=== PATIENT | male | born 1970 | race Caucasian/White ===

== ENCOUNTER 2020-08-23 15:36 | Outpatient (REF) | payer BC, SELFPAY ==
[2020-08-23 16:11] LABS: MANUAL DIFF FLAG NO
[2020-08-23 16:21] LABS: Basophils Percent Auto 0.7 % (0-2); Eosinophils Percent Auto 0.4 % (0-4); Hematocrit 41.2 % (42-52); Hemoglobin 14.5 g/dl (14.0-18.0); Imm Gran Abs Auto 0.02 X10*3/uL (0.00-0.03); Imm Gran Pct Auto 0.4 % (0.0-0.4); Lymphocytes Absolute Auto 1.7 X10*3/uL (1.2-4.9); Lymphocytes Percent Auto 35.9 % (20-40); Mean Corpuscular HGB Conc 35.2 g/dl (31.0-36.0); Mean Corpuscular Hemoglobin 33.6 pg (27.0-33.0); Mean Corpuscular Volume 95.6 fL (80-98); Mean Platelet Volume 10.7 fL (9.4-12.4); Monocytes Absolute Auto 0.4 X10*3/uL (0.1-1.2); Monocytes Percent Auto 9.1 % (2-11); Neutrophils Absolute Auto 2.5 X10*3/uL (2.0-8.3); Neutrophils Percent Auto 53.5 % (45-73); Platelet Count 257 X10*3/uL (160-400); Red Blood Count 4.31 X10*6/uL (4.60-5.80); Red Cell Distribution Width 11.5 % (11.0-16.0); White Blood Count 4.6 X10*3/uL (4.8-10.8)
[2020-08-23 16:34] LABS: Glucose Urine UA NEG (NEG); Leukocyte Esterase Urine NEG (NEG); Nitrite Urine NEG (NEG); PH 7.5 (5.0-8.0); Urine Blood NEG (NEG); Urine Ketones NEG (NEG); Urine Protein NEG (NEG-TRACE)
[2020-08-23 16:38] LABS: Appearance Urine CLEAR; Color Urine YELLOW
[2020-08-23 16:48] LABS: Alanine Aminotransferase 23 U/L (0-40); Albumin Level 4.7 g/dL (3.5-5.0); Alkaline Phosphatase 75 U/L (39-117); Anion Gap 12 (12-20); Aspartate Amino Transferase 21 U/L (5-37); Bilirubin Total 0.7 mg/dL (0.0-1.0); Blood Urea Nitrogen 16 mg/dL (9-16); C Reactive Protein 0.03 mg/dL (< or = 0.50); Calcium 9.6 mg/dL (8.4-10.2); Carbon Dioxide 31 mmol/L (22-29); Chloride 102 mmol/L (96-108); Cholesterol 152 mg/dL; Estimated Glomerular Filt Rate > 60; Glucose Random 93 mg/dL (60-115); HDL Cholesterol 47 mg/dL; LDL Cholesterol Calculated 85 mg/dl; Potassium 4.1 mmol/L (3.3-5.1); Sodium 141 mmol/L (135-145); Total Protein 7.2 g/dL (6.5-8.0); Triglycerides 101 mg/dL
[2020-08-23 17:09] LABS: Prostate Specific Antigen 0.74 ng/mL (<0.05-4.0)
== END 2020-08-23 15:37 | disposition home or self-care (01) ==
LOC: HO.LAB 15:36
PROVIDERS: PCP Internal Medicine; Visit Provider Internal Medicine
DX: Z00.00 Encounter for general adult medical examination without abnormal findings (principal)
CPT/HCPCS: 36415; 80053; 80061; 81003; 84153; 85025; 86140

== ENCOUNTER 2020-10-12 14:40 | Outpatient (REF) | payer BC, SELFPAY ==
--- NOTE | ~2020-10-12 | XR_ITS ---
EXAMINATION: XR SACRUM AND COCCYX CLINICAL INFORMATION: Pain COMPARISON: None TECHNIQUE: 2 views of the sacrum and 2 views of the coccyx were obtained. FINDINGS: There are no fractures. No bone, joint or soft tissue abnormality is demonstrated. XR/XR sacrum coccyx min 2V IMPRESSION: Unremarkable examination.
== END 2020-10-12 14:41 | disposition home or self-care (01) ==
LOC: HO.XRAY 14:40
PROVIDERS: PCP Internal Medicine; Visit Provider Internal Medicine
DX: M53.3 Sacrococcygeal disorders, not elsewhere classified (principal)
CPT/HCPCS: 72220

== ENCOUNTER 2021-04-11 09:36 | Outpatient (REF) | payer BC, SELFPAY ==
--- NOTE | ~2021-04-11 | CT_ITS ---
EXAMINATION: CT PELVIS WITHOUT CONTRAST CLINICAL INFORMATION: Left-sided sacroiliac joint and coccyx pain. No history of trauma. COMPARISON: Previous x-ray of the sacrum and coccyx September 2020 TECHNIQUE: Helical scanning was performed with submillimeter collimation through the pelvis. Sagittal and coronal multiplanar 2-D reconstructions were obtained. This CT examination was performed using dose optimization techniques as appropriate, variously including the following: *Automated exposure control *Adjustment of mA and/or kV according to patient size (this includes techniques or standardized protocols for targeted exams where dose is matched to indication/reason for exam; i.e. extremities or head) *Use of iterative reconstruction technique DLP: 294 mGy-cm FINDINGS: PELVIS: There is no pelvic mass. There is stool throughout the colon questionable for constipation. Bladder prostate gland are normal. No ascites or adenopathy is seen. No hernia is seen. OSSEOUS STRUCTURES: The sacrum and coccyx are normal-appearing. No fracture or bone lesion is seen. The sacroiliac joints are normal. There are small osteophytes at the hip joints. The hip joints are otherwise normal. There is degenerative disc disease at L5-S1. CT/CT pelvis wo con IMPRESSION: Normal-appearing sacrum, coccyx and sacroiliac joints. Degenerative disc disease at L5-S1.
== END 2021-04-11 09:37 | disposition home or self-care (01) ==
LOC: HO.CT 09:36
PROVIDERS: PCP Internal Medicine; Visit Provider Internal Medicine
DX: M53.3 Sacrococcygeal disorders, not elsewhere classified (principal)
CPT/HCPCS: 72192

== ENCOUNTER 2022-11-13 09:22 | Day surgery (SDC) | payer BC, SELFPAY ==
[2022-11-13 09:35] VITALS: BP 100/63; PULSE 60; RESP 18; TEMP 36.2; O2SAT 97; BMI 25.8
[2022-11-13] MEDS: Lactated Ringers 1,000 ML 50 ML IV (10:12)
--- NOTE | 2022-11-13 10:22 | HO.ANESPROP2 ---
[facility] Past Medical History Medical History Basal cell carcinoma Functional capacity: independent ambulation Surgical History Surgical History History of surgery on arm Hx of appendectomy History of Problems with Anesthesia: No Social History Social History Patient Tobacco Use Status: Never used Tobacco Use of substances other than those prescribed or required for medical reasons: No Are you DNR?: No Advance Directives: No Advance Directives Information Provided: Yes Meds Allergies Allergy/AdvReac Type Severity Reaction Status Date / Time No Known Allergies Allergy Unverified 11/11/22 18:45 Active Medications: Current Medications Lactated Ringer's (Lr) 1,000 mls @ 50 mls/hr IV .Q20H ADY Stop: 11/14/22 06:14 Last Admin: 11/13/22 10:12 Dose: 50 mls/hr Sodium Biphosphate/Sodium Phosphate (Sodium Phosphate,Mccurtain-Dibasic 133 Ml Enema) 133 ml [place] ONCE PRN PRN Reason: Poor Colonoscopy Prep Results Exam Exam Date and Time: November 13, 2022 1022 Height,Weight and Vital Signs: Height 5 ft 9 in Weight 79.379 kg Last Vital Signs Temp 97.2 F 11/13/22 09:35 Pulse 60 11/13/22 09:35 Resp 18 11/13/22 09:35 BP 100/63 11/13/22 09:35 Pulse Ox 97 11/13/22 09:35 O2 Del Method Room Air 11/13/22 09:35 Airway Mallampati Class: II TM Dist: >3cm Neck ROM: Full Heart: RRR Lungs: CTA Assessment and Plan Final Anesthetic Review History of Problems with Anesthesia: No ASA Class: II Final Preanesthetic Review: Meds/Allgs Chart Reviewed, Consent Obtained/Reviewed and Anes Risks/Benef Reviewed Patient Risk: Low Procedure Risk: Low Anesthetic Plan Anesthetic Plan: MAC: Disposition: Standard PACU
[2022-11-13 12:01] VITALS: BP 112/62; PULSE 51; RESP 16; TEMP 36.7; O2SAT 97
--- NOTE | 2022-11-13 12:04 | PM.OP ---
Brief Operative Note Date of Service: 11/13/22 Pre-op diagnosis: Screening Post-op diagnosis: other (Mild sigmoid diverticulosis) Procedure: Colonoscopy to the cecum and TI Surgeon: Phani Galvin Anesthesia: MAC Was an [employer] Maker Hand used for this Procedure?: No Estimated blood loss (mL): 0 Pathology: none sent Condition: stable Disposition: PACU
[2022-11-13 12:16] VITALS: BP 114/61; PULSE 54; RESP 16; TEMP 36.7; O2SAT 97
--- NOTE | 2022-11-13 12:47 | OP_ITS ---
DATE OF SERVICE: 11/13/2022 SURGEON: Phani Galvin MD INDICATIONS: The patient presents for evaluation of colorectal cancer screening. Full consent has been obtained from him for this, including risks of bleeding and perforation. PREOPERATIVE DIAGNOSIS: Colorectal cancer screening. POSTOPERATIVE DIAGNOSIS: PROCEDURE PERFORMED: Colonoscopy to cecum and terminal ileum. ESTIMATED BLOOD LOSS: COMPLICATIONS: ANESTHESIA: Monitored anesthesia care. ASSISTANTS: SPECIMENS: POSTOPERATIVE DIAGNOSES: Colorectal cancer screening, occasional sigmoid diverticulosis, small internal hemorrhoids. DESCRIPTION OF PROCEDURE: The patient was placed in the left lateral decubitus position. The digital rectal exam revealed no abnormalities. The Olympus video pediatric colonoscope was entered into the rectum and advanced easily to the cecum. Once in the cecum I did identify normal-appearing cecal pouch with appendiceal orifice and a normal-appearing ileocecal valve. The terminal ileum was cannulated and appeared normal. The scope was withdrawn back in the colon. The entire cecum and ileocecal valve appeared normal. The scope was slowly withdrawn assessing all mucosal surfaces carefully. Preparation was excellent. I did not visualize any sign of polyps, colitis, nor angiodysplasia. There were occasional diverticula noted in the sigmoid colon. In the rectum, scope was retroflexed visualizing internal hemorrhoids, but no other pathology. The rectal mucosa appeared normal. The scope was straightened and withdrawn from the patient. He tolerated the procedure well and was returned to the recovery area in stable condition. IMPRESSION: 1. Occasional sigmoid diverticulosis. 2. Internal hemorrhoids. PLAN: Given today's negative exam, I would recommend a repeat colonoscopy in 10 years for screening. He will otherwise see me on a p.r.n. basis. Phani Galvin MD RMW/MODL / [id number] MTDD
--- NOTE | 2022-11-13 13:26 | HO.POSTANES ---
Post Anesthesia Evaluation Post Anesthesia Evaluation Date of Service: 11/13/22 Vital Signs: Vital Signs Temp Pulse Resp BP Pulse Ox O2 Del Method 11/13/22 12:16 98.1 F 54 16 114/61 97 Room Air 11/13/22 12:01 98.1 F 51 16 112/62 97 Room Air 11/13/22 09:35 97.2 F 60 18 100/63 97 Room Air Anesthesia: Monitored Mental Status: Awake Pain Control: Satisfactory Nausea/Vomiting: None Hydration: Adequate Anesthesia-Related Issues: No Anes. Related Issues
== END 2022-11-13 13:29 | disposition home or self-care (01) ==
PROVIDERS: PCP Internal Medicine; Visit Provider Internal Medicine
PROC: 0DJD8ZZ Inspection of Lower Intestinal Tract, Via Natural or Artificial Opening Endoscopic (ICD-10-PCS; CPT 45378; principal; 2022-11-13 10:30)
DX: Z12.11 Encounter for screening for malignant neoplasm of colon (principal); K57.30 Diverticulosis of large intestine without perforation or abscess without bleeding; K64.8 Other hemorrhoids; Z85.828 Personal history of other malignant neoplasm of skin
CPT/HCPCS: 45378

== ENCOUNTER 2023-01-23 09:02 | Outpatient (REF) | payer BC, SELFPAY ==
[2023-01-23 09:23] LABS: MANUAL DIFF FLAG NO
[2023-01-23 10:20] LABS: Basophils Percent Auto 1.2 % (0-2); Eosinophils Percent Auto 0.9 % (0-4); Hematocrit 42.3 % (42.0-52.0); Hemoglobin 14.5 g/dl (14.0-18.0); Imm Gran Abs Auto 0.01 X10*3/uL (0.00-0.03); Imm Gran Pct Auto 0.3 % (0.0-0.4); Lymphocytes Absolute Auto 1.5 X10*3/uL (1.2-4.9); Lymphocytes Percent Auto 43.4 % (20-40); Mean Corpuscular HGB Conc 34.3 g/dl (31.0-36.0); Mean Corpuscular Volume 96.4 fL (80.0-98.0); Mean Platelet Volume 10.5 fL (9.4-12.4); Monocytes Absolute Auto 0.3 X10*3/uL (0.1-1.2); Monocytes Percent Auto 8.7 % (2-11); Neutrophils Absolute Auto 1.6 x10*3/uL (2.0-8.3); Neutrophils Percent Auto 45.5 % (45-73); Platelet Count 231 X10*3/uL (160-400); Red Blood Count 4.39 X10*6/uL (4.60-5.80); Red Cell Distribution Width 11.7 % (11.0-16.0); White Blood Count 3.4 X10*3/uL (4.8-10.8)
[2023-01-23 10:53] LABS: Alanine Aminotransferase 17 U/L (0-40); Albumin Level 4.1 g/dL (3.5-5.0); Alkaline Phosphatase 76 U/L (39-117); Anion Gap 10 (12-20); Aspartate Amino Transferase 18 U/L (5-37); Bilirubin Total 0.7 mg/dL (0.0-1.0); Blood Urea Nitrogen 13 mg/dL (9-16); Calcium 9.5 mg/dL (8.4-10.2); Carbon Dioxide 29 mmol/L (22-29); Chloride 107 mmol/L (96-108); Cholesterol 114 mg/dL; Estimated Glomerular Filt Rate > 60; Glucose Fasting 92 mg/dL (60-99); HDL Cholesterol 43 mg/dL; LDL Cholesterol Calculated 63 mg/dl; Potassium 4.1 mmol/L (3.3-5.1); Sodium 142 mmol/L (135-145); Total Protein 6.7 g/dL (6.5-8.0); Triglycerides 44 mg/dL
[2023-01-23 11:09] LABS: Prostate Specific Antigen Scr 0.97 ng/mL (<0.05-4.0); Thyroid Stimulating Hormone 0.93 uIU/mL (0.32-4.0); Vitamin B12 1915 pg/mL (200-900)
[2023-01-29 15:24] LABS: Testosterone, Free 55.7 pg/mL (35.0-155.0); Testosterone, Total 525 ng/dL (250-1100)
== END 2023-01-23 09:03 | disposition home or self-care (01) ==
LOC: HO.LAB 09:02
PROVIDERS: PCP Internal Medicine; Visit Provider Internal Medicine
DX: Z12.5 Encounter for screening for malignant neoplasm of prostate (principal); R53.83 Other fatigue; H93.19 Tinnitus, unspecified ear; Z83.3 Family history of diabetes mellitus
CPT/HCPCS: 36415; 80053; 80061; 82607; 84153; 84402; 84403; 84443; 85025

== ENCOUNTER 2025-02-15 10:19 | Outpatient (AMB) | payer BC, SELFPAY ==
--- NOTE | 2025-02-15 08:56 | MHC.PC.OV ---
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 He has been having fatigue on and off for several months. He is not on medication. He has NKA. He would like to get labs including Testosterone which he states was low in the past. He needs a referral to go back to [facility] for follow up of his left arm pain. Patient had a colonoscopy in 2022. Next in 10 years [facility] Medical History Basal cell carcinoma Surgical History History of colonoscopy (~11/13/22) History of surgery on arm Hx of appendectomy Family History (Updated 02/15/25 @ 10:32 by Alexa Ramos MA) Unknown No problems noted. Unknown No problems noted. Social History Housing: House Patient Tobacco Use Status: Never used Tobacco e-Cigarette/Vaping Use: Never Used service: No Current occupational status: employed Cognitive needs: No Hearing needs: No Vision needs: Yes (reading) Questionnaire PHQ-9 Over the last 2 weeks, how often have you been bothered by any of the following problems? 1. Little interest or pleasure in doing things: not at all 2. Feeling down, depressed, or hopeless: not at all 3. Trouble falling or staying asleep, or sleeping too much: not at all 4. Feeling tired or having little energy: not at all 5. Poor appetite or overeating: not at all 6. Feeling bad about yourself - or that you are a failure or have let yourself or your family down: not at all 7. Trouble concentrating on things, such as reading the newspaper or watching television: not at all 8. Moving or speaking so slowly that other people could have noticed. Or the opposite - being so fidgety or restless that you have been moving around a lot more than usual: not at all 9. Thoughts that you would be better off or of hurting yourself in some way: not at all Total score: 0 Source: Developed by Drs. Phani Steele, Peyton Whyte, Cooper Chadwick and colleagues, with an educational nicole from [employer]. Thrive Questionnaire Date Thrive assessed: 02/15/25 I am a: Patient Within the past 12 months, did the food you bought not last and you didn't have the money to get more?: Never true Within the past 12 months, did you worry whether your food would run out before you got money to buy more?: Never true Do you have trouble paying for medicines?: No Do you have trouble getting transportation to medical appointments?: No Do you have trouble paying your heating and electricity bill?: No Do you have trouble taking care of your child, family member or friend?: No Do you have trouble with day-to-day activities such as bathing, preparing meals, shopping, managing finances, etc.?: No Are you currently unemployed and looking for a job?: No Are you interested in more education?: No THRIVE Score: 0 AUDIT C Alcohol Use Questionnaire (AUDIT-C) 1. How often do you have a drink containing alcohol?: Never 3. How often do you have six or more drinks on one occasion?: Never Total Score: 0 YAIR-7 AMB Questionnaire YAIR-7 Date YAIR - 7 assessed: 02/15/25 Feeling nervous, anxious, or on edge: 0 = Not at all Not being able to stop or control worryin = Not at all Worrying too much about different things: 0 = Not at all Trouble relaxin = Not at all Being so restless that it is hard to sit still: 0 = Not at all Becoming easily annoyed or irritable: 0 = Not at all Feeling afraid as if something awful might happen: 0 = Not at all Total YAIR-7 score (0-4 normal; 5-9 mild; 10-14 moderate; 15-21 severe): 0 Source: Developed by Drs. Phani Steele, Peyton Whyte, Cooper Chadwick and colleagues, with an educational nicole from [employer]. Review of Systems Const Details: CONSTITUTIONAL No Chills No Fever No Weight loss Fatigue No generalized weakness SKIN No itching No skin lesions Scaring on nose EYES No change in visual acuity No eye pain No red eye HEAD AND NECK No dizziness No headache No neck pain EAR/NOSE/MOUTH/THROAT No earache No sinus pain No congestion No hoarseness No sore throat RESPIRATORY No cough No shortness of breath No wheezing CARDIOVASCULAR No chest pain No dyspnea No palpitations No peripheral edema No Syncope GASTROINTESTINAL No abdominal pain No constipation No diarrhea No heartburn No loss of appetite No nausea No vomiting GENITOURINARY No dysuria No hematuria No urinary frequency No urinary urgency ENDOCRINE No cold intolerance No excessive hunger No excessive thirst No change in hair texture MUSCULOSKELETAL No back pain No joint pain No swelling Left arm pain IMMUNOLOGICAL/ALLERGIC No congestion No itchy eyes No itchy nose No rhinitis No watery eyes HEMATOLOGIC No bleeding tendencies No bruising No fatigue LYMPHATIC No swollen lymph nodes NEUROLOGICAL No memory loss No paresthesias No focal weakness PSYCHIATRIC No anxiety No depression No sleeping problems No substance abuse No suicidal ideation Physical exam (Primary Care) Vital Signs: Last Vital Signs Temp 97.2 F 02/15/25 10:26 Pulse 62 02/15/25 10:26 BP 120/74 02/15/25 10:26 Pulse Ox 96 02/15/25 10:26 Oxygen Delivery Method Room Air 02/15/25 10:26 BMI result Body Mass Index 26.7 GENERAL Well developed, Well nourished, in no apparent distress HEENT Head-Normocephalic Eyes- PERRLA, EOMI, Conjuctiva clear, lids WNL Ears- Canals clear, TMs WNL Mouth/Throat-No lesions, no erythema, no exudate Neck- Supple, No lymphadenopathy, thyroid WNL RESPIRATORY Normal I:E, Clear to auscultation CARDIOVASCULAR Regular, rate and rhythm, No murmurs or rubs GASTROINTESTINAL Soft, nontender, normal bowel sounds, no masses MUSCULOSKELETAL left arm- Full ROM, mild tenderness, muscle strength 3/5 NEUROLOGICAL Gait normal PSYCHIATRIC Oriented to person, place and time Mood and affect WNL Appearance WNL Speech WNL Thought processes WNL Tobacco/Smoking Status: Tobacco use Status Tobacco use date assessed 02/15/25 02/15/25 08:57 Patient Tobacco Use Status Never used Tobacco 02/15/25 08:57 e-Cigarette/Vaping Use Never Used 02/15/25 08:57 PHQ-9: PHQ-9 Score PHQ-9: Total score 0 02/15/25 10:26 Thrive Assessment: Date of Thrive Assessment Date Thrive assessed 02/15/25 02/15/25 08:57 Coding Level of Care Code New Pt New Pt Prev Care 40-64y(75775) Patient Type New Diagnoses Health care maintenance Z00.00 Fatigue R53.83 Left arm pain M79.602 Assessment & Plan Assessment & Plan (1) Health care maintenance: Code(s): Z00.00 - Encounter for general adult medical examination without abnormal findings Plan: Will get labs. Patient to follow up in 6 month-1 year or sooner if needed (2) Fatigue: Code(s): R53.83 - Other fatigue Category: Medical Plan: Will get labs. Will follow up in 6 months- 1 year depending on lab results. (3) Left arm pain: Code(s): M79.602 - Pain in left arm Category: Medical Plan: Will refer back to Orthopedics for follow up. Orders: Orders Complete Blood Count Auto Diff Today R53.83 - Other fatigue, Z00.00 - Encounter for general adult medical examination without abnormal findings Comprehensive Met. Panel Today R53.83 - Other fatigue, Z00.00 - Encounter for general adult medical examination without abnormal findings Hemoglobin A1c Today Z13.1 - Encounter for screening for diabetes mellitus Lipid Panel Today Z13.220 - Encounter for screening for lipoid disorders TSH reflex Free T4 Today R53.83 - Other fatigue Vitamin D 25-OH Total Today Z00.00 - Encounter for general adult medical examination without abnormal findings Testosterone, Free/Total Today R53.83 - Other fatigue Referrals Orthopedics Referral M79.602 - Pain in left arm
[2025-02-15 10:26] VITALS: BP 120/74; PULSE 62; TEMP 36.2; O2SAT 96; BMI 26.7
--- OUTSIDE RECORDS SUMMARY | 2025-02-15 11:51 | XMS_ITS | Patient Health Record ---
Author Organization [facility] Address [address] [place] [address] Care Team Providers Care Stained Glass Joiner Name Role Phone Nupur (RETIRED) Steven DELGADO Primary Care Provide r Unavailable Kamar Juan Daniel Unavailable [phone] Allergies No Known Allergies Reason For Referral No Information Medications Medication SIG (Take, Route, Frequency, Duration) Notes Start Date End Date Status Multivital Active Social History Tobacco Use: Social History Observation Description Date Details (start date - stop date) Never Smoker NA - NA Tobacco Use/Smoking Question Answer Notes Patient is a nonsmoker Alcohol Screen Question Answer Notes Did you have a drink containing alcohol in the p ast year? No Points 0 Interpretation Negative Section Notes: Nonsmoker; No sig alcohol Problems Problem Type SNOMED Code ICD Code Onset Dates Problem Status W/U Status Risk Notes Problem Diverticular disease of colon (520560725) Diverticulosis of large intestine without perforation or abscess without bleeding (K57.30) Active confirmed Problem 684806022 Screen for colon cancer (Z12.11) Active confirmed Problem [id number] Preprocedural examination (Z01.818) Active confirmed Plan Of Treatment Future Test Test Name Order Date COLONOSCOPY 09/17/2022 Insurance Providers Payer Name Payer Address Payer Phone Subscriber Number Group Number Insured Name Patient Relationship to Insured Coverage Start Date Coverage End Date [facility] [address] [place] [address] [phone] [id number] JUAN DANIEL WHATLEY Self - patient is the insured Medical (General) History Medical History History ICD Code Denies [place],DM,CVA,Lung disease,renal dise ase Surgical History Surgery Date(Month/Year) Appendectomy 1996 Right bicep tear 2019 Basal call cancer on nose 2018
== END 2025-02-15 11:05 | disposition home or self-care (01) ==
LOC: HO.HMCHD 10:20
PROVIDERS: PCP Internal Medicine; Visit Provider Physician Assistant Medical
DX: Z00.00 Encounter for general adult medical examination without abnormal findings (principal); R53.83 Other fatigue; M79.602 Pain in left arm

== ENCOUNTER 2025-02-15 11:13 | Outpatient (REF) | payer BC, SELFPAY ==
[2025-02-15 13:22] LABS: MANUAL DIFF FLAG NO
[2025-02-15 13:28] LABS: Hematocrit 42.2 % (42.0-52.0); Hemoglobin 14.8 g/dl (14.0-18.0); Imm Gran Abs Auto 0.01 X10*3/uL (0.00-0.03); Imm Gran Pct Auto 0.3 % (0.0-0.4); Lymphocytes Absolute Auto 1.2 X10*3/uL (1.2-4.9); Mean Corpuscular HGB Conc 35.1 g/dl (31.0-36.0); Mean Corpuscular Hemoglobin 33.3 pg (27.0-33.0); Mean Corpuscular Volume 95.0 fL (80.0-98.0); NRBC Abs Auto 0.000 X10*3/uL (0.0-0.012); NRBC Pct Auto 0.0 /100WBC (0.0-0.2); Platelet Count 242 X10*3/uL (160-400); Red Blood Count 4.44 X10*6/uL (4.60-5.80); White Blood Count 3.5 X10*3/uL (4.8-10.8)
[2025-02-15 13:50] LABS: Hemoglobin A1C 127.4876 umol/L; Total Hemoglobin (HGBA1C) 3803.7098 umol/L
[2025-02-15 14:14] LABS: Alanine Aminotransferase 26 U/L (0-40); Albumin Level 4.8 g/dL (3.5-5.0); Alkaline Phosphatase 98 U/L (39-117); Anion Gap 12 (12-20); Aspartate Amino Transferase 31 U/L (5-37); Blood Urea Nitrogen 16 mg/dL (9-16); Calcium 9.5 mg/dL (8.4-10.2); Carbon Dioxide 30 mmol/L (22-29); Chloride 106 mmol/L (96-108); Cholesterol 137 mg/dL (<200); Estimated Glomerular Filt Rate > 60; HDL Cholesterol 47 mg/dL (>40); Potassium 4.5 mmol/L (3.3-5.1); Sodium 143 mmol/L (135-145); Total Protein 7.2 g/dL (6.5-8.0); Triglycerides 49 mg/dL (<150)
[2025-02-15 14:18] LABS: Prostate Specific Antigen 0.90 ng/mL (<0.05-4.0); Vitamin B12 479 pg/mL (200-900)
[2025-02-20 15:28] LABS: Testosterone, Free 54.9 pg/mL (35.0-155.0)
== END 2025-02-15 11:14 | disposition home or self-care (01) ==
LOC: HO.10HDL 11:13
PROVIDERS: Physician Assistant; Visit Provider Physician Assistant Medical
DX: Z00.00 Encounter for general adult medical examination without abnormal findings (principal); Z13.1 Encounter for screening for diabetes mellitus; Z13.220 Encounter for screening for lipoid disorders; Z12.5 Encounter for screening for malignant neoplasm of prostate; Z13.6 Encounter for screening for cardiovascular disorders; R53.83 Other fatigue
CPT/HCPCS: 36415; 80053; 80061; 82248; 82306; 82607; 83036; 84153; 84402; 84403; 84443; 85025